=== PATIENT | male | born 1995 | race Caucasian/White ===

== ENCOUNTER → 2017-08-21 | Outpatient (CLI) | payer BC ==
[2017-08-21 15:23] LABS: BASO ABS # 0.05 K/uL (0-0.2); EOS % 12.4 %; EOS ABS # 0.65 K/uL (0-0.5); HEMATOCRIT 44.1 % (42-52); HEMOGLOBIN 15.2 g/dL (14.0-18.0); IG# 0.01 K/uL (0.00-0.02); LYMPH ABS # 2.41 K/uL (1.2-3.4); MEAN CELL VOLUME 91.7 fL (80-100); MEAN CORPUSCULAR HEMOGLOBIN 31.6 pg (25-34); MEAN CORPUSCULAR HGB CONC 34.5 g/dl (32-36); MEAN PLATELET VOLUME 11.4 fL (7.4-10.4); MONO ABS # 0.42 K/uL (0.11-0.59); NEUT % 32.4 %; PLATELET COUNT 294 K/uL (130-400); RED CELL DISTRIBUTION WIDTH CV 12.8 % (11.5-14.5); RED CELL DISTRIBUTION WIDTH SD 43.3 fL (36.4-46.3); WHITE BLOOD COUNT 5.24 K/uL (4.8-10.8)
[2017-08-27 05:43] LABS: ANA SCREEN TC 249X NEGATIVE (NEGATIVE)
--- NOTE | 2017-08-28 13:46 | CODING QUERY MEDICAL NECESSITY ---
SUPPORTING DIAGNOSIS NEEDED A supporting diagnosis is required for the test/procedure performed on this patient in order for us to be reimbursed by the patient's insurance. Please provide a supporting diagnosis for the following test/procedure listed below next to the test name along with your signature. *If there is no additional diagnosis for this patient that would support the following test/procedure please document that below next to the test/procedure. Test(s)/Procedure(s) that require a supporting diagnosis: * VITAMIN D, 25-HYDROXY DIAGNOSIS: * VITAMIN B12 DIAGNOSIS: Provider Signature: Date: Thank you Radha Ahuja [employer] Once completed, please kindly fax back to [phone] For questions please call [phone]
== END | disposition home or self-care (01) ==
LOC: C.LAB1850 13:10
DX: R53.83 Other fatigue (principal); E55.9 Vitamin D deficiency, unspecified